=== PATIENT | female | born 1990 | race Caucasian/White ===

== ENCOUNTER 2020-05-24 13:36 | Inpatient (IN) ==
[2020-05-24] MEDS ORDERED: Metoclopramide 10 MG/2 ML VIAL IVP PRN (13:51)
[2020-05-24] MEDS ORDERED: Famotidine 20 MG/2 ML VIAL IVP PRN (13:51)
[2020-05-24] MEDS ORDERED: Naloxone 0.4 MG/ML INJ IVP PRN (13:51)
[2020-05-24] MEDS ORDERED: Ringers Solution, Lactated 1,000 ML IVC SCH (14:00)
[2020-05-24] MEDS ORDERED: miSOPROStoL 25 MCG TABLET PO PRN (15:30)
[2020-05-24 16:30] LABS: Basophils # 0.1 K/mcL (0.0-0.2); Basophils % 0.7 %; Eosinophils # 0.4 K/mcL (0.0-0.6); Hemoglobin 11.1 g/dL (11.5-15.4); Immature Granulocytes % 0.4 % (0-4); Lymphocytes % 19.2 %; Mean Corpuscular HGB Conc 31.7 g/dL (31.6-35.5); Mean Corpuscular Hemoglobin 27.5 pg (28.0-33.3); Mean Corpuscular Volume 86.8 fL (83.0-100.0); Mean Platelet Volume 10.6 fL (9.4-12.4); Monocytes # 1.1 K/mcL (0.0-1.3); Monocytes % 11.2 %; Neutrophils # 6.6 K/mcL (1.6-8.9); Platelet Count 347 K/mcL (140-400); Red Blood Count 4.03 M/mcL (3.82-4.97); Red Cell Distribution Width 12.7 % (11.5-14.5); Segmented Neutrophils % 64.5 %; White Blood Count 10.2 K/mcL (4.3-11.1)
[2020-05-24 16:39] LABS: Amphetamine Screen,Urine Negative ng/mL (Cutoff=1000); Barbiturate Screen,Urine Negative ng/mL (Cutoff=200); Benzodiazepines Screen,Urine Negative ng/mL (Cutoff=200); Cannabinoid Screen,Urine Negative ng/mL (Cutoff = 50); Cocaine Screen,Urine Negative ng/mL (Cutoff= 300); Creatinine,Urine 51 mg/dL; Opiate Screen,Urine Negative ng/mL (Cutoff=300); Phencyclidine Screen,Urine Negative ng/mL (Cutoff=25); Protein/Creatinine Ratio,Urine 0.14 mg/mg (0.00-0.20)
[2020-05-24 16:49] LABS: Alanine Aminotransferase 14 Units/L (7-52); Aspartate Amino Transferase 19 Units/L (13-39); BUN/Creatinine Ratio 8 (6-26); Blood Urea Nitrogen 4 mg/dL (6-20); Lactate Dehydrogenase 178 Units/L (140-271); Uric Acid 3.5 mg/dL (2.3-7.6); eGFR For African Americans > 60 (> 60); eGFR For Non-African Americans > 60 (> 60)
[2020-05-24] MEDS ORDERED: *HR* FentaNYL (PF) 100 MCG/2 ML VIAL IVP ONE (18:21)
[2020-05-24] MEDS ORDERED: Bupivacaine-MPF 0.25% 10 ML VIAL EP ONE (20:02)
[2020-05-24] MEDS ORDERED: *HR* FentaNYL (PF) 100 MCG/2 ML VIAL EP ONE (20:02)
[2020-05-24] MEDS ORDERED: EPHEDrine 50 MG/ML VIAL IVP PRN (20:02)
[2020-05-24] MEDS ORDERED: Ropivacaine/PF 0.2% 20 ML VIAL ONE (20:03)
[2020-05-24] MEDS ORDERED: Bupivacaine-MPF 0.25% 10 ML VIAL ONE (20:04)
[2020-05-24] MEDS ORDERED: *HR* FentaNYL (PF) 100 MCG/2 ML VIAL ONE (20:04)
[2020-05-24] MEDS: Ondansetron 4 MG/2 ML VIAL IVP PRN (22:45)
[2020-05-24] MEDS: Oxytocin 20 units/ LR 1000 mL 20 UNIT/1,000 ML BAG IVC SCH (23:28)
[2020-05-25] MEDS: Epidural Premix (fent/bupiv) 110 ML EP SCH ×4 (04:35→23:04)
[2020-05-25] MEDS: Ondansetron 4 MG/2 ML VIAL IVP PRN (14:36)
[2020-05-25] MEDS: Oxytocin 20 units/ LR 1000 mL 20 UNIT/1,000 ML BAG IVC SCH (15:01)
[2020-05-25] MEDS: D5% in Lactated Ringers 1,000 ML IVC SCH ×2 (15:03→23:07)
[2020-05-25 17:48] LABS: Adenovirus Not Detected (Not Detect); Bordetella Pertussis Not Detected (Not Detect); Chlamydophila pneumoniae Not Detected (Not Detect); Coronavirus 229E Not Detected (Not Detect); Coronavirus HKU1 Not Detected (Not Detect); Coronavirus NL63 Not Detected (Not Detect); Coronavirus OC43 Not Detected (Not Detect); Human Metapneumovirus Not Detected (Not Detect); Human Rhinovirus/Enterovirus Not Detected (Not Detect); Influenza A Subtype 2009 H1 Not Detected (Not Detect); Influenza B Not Detected (Not Detect); Mycoplasma pneumoniae Not Detected (Not Detect); Parainfluenza Virus 1 Not Detected (Not Detect); Parainfluenza Virus 2 Not Detected (Not Detect); Parainfluenza Virus 3 Not Detected (Not Detect); Parainfluenza Virus 4 Not Detected (Not Detect); Respiratory Syncytial Virus Not Detected (Not Detect); SARS-CoV-2 Not Detected (Not Detect)
[2020-05-25] MEDS ORDERED: Ropivacaine/PF 0.2% 20 ML VIAL ONE ×2 (20:30→22:52)
[2020-05-25] MEDS ORDERED: Lidocaine -MPF 2% 5 ML VIAL ONE (23:49)
[2020-05-25] MEDS ORDERED: *HR* Ropivacaine/PF 0.5% 20 ML VIAL ONE (23:50)
[2020-05-25] MEDS ORDERED: ceFAZolin 3,000 MG in Water for inj. (sterile) 30 ML IVP ONE (23:58)
[2020-05-25] MEDS ORDERED: Chloroprocaine/PF 20 ML VIAL INFILT ONE (23:59)
[2020-05-26] MEDS ORDERED: Azithromycin 500 MG in 0.9 % Sodium Chloride 250 ML IVPB ONE (00:05)
[2020-05-26] MEDS ORDERED: *HR* Succinylcholine 200 MG/10 ML VIAL IVP ONE (00:05)
[2020-05-26] MEDS ORDERED: Ondansetron 4 MG/2 ML VIAL ONE (00:09)
[2020-05-26] MEDS ORDERED: *HR* Morphine Sulfate/PF 10 MG/10 ML AMPUL ONE (00:49)
[2020-05-26] MEDS ORDERED: *HR* FentaNYL (PF) 100 MCG/2 ML VIAL ONE ×2 (00:51→01:17)
[2020-05-26] MEDS ORDERED: Acetaminophen IV 1,000 MG/100 ML INFUS..BTL ONE (01:06)
[2020-05-26] MEDS ORDERED: Dexamethasone 4 MG/ML VIAL ONE (01:16)
[2020-05-26] MEDS ORDERED: *HR* OxyCODONE Immed Rel 5 MG TABLET PO PRN (01:41)
[2020-05-26] MEDS: *HR* HYDROmorphone PF 0.5 MG/0.5 ML SYRINGE IVP PRN ×2 (01:55→02:21)
[2020-05-26] MEDS ORDERED: Ondansetron 4 MG/2 ML VIAL IVP PRN (03:56)
[2020-05-26] MEDS ORDERED: Metoclopramide 10 MG/2 ML VIAL IVP PRN (03:56)
[2020-05-26] MEDS ORDERED: Sennosides 8.6 MG TABLET PO PRN (03:56)
[2020-05-26] MEDS ORDERED: RIZATRIPTAN BENZOATE PO PRN (03:56)
[2020-05-26] MEDS: *HR* OxyCODONE/APAP 5/325 TABLET PO PRN ×4 (05:15→20:40)
[2020-05-26] MEDS: Oxytocin 20 units/ LR 1000 mL 20 UNIT/1,000 ML BAG IVC SCH ×3 (05:50→20:38)
[2020-05-26 06:19] LABS: Basophils % 0.2 %; Hematocrit 29.1 % (35.3-44.9); Immature Granulocytes % 0.7 % (0-4); Lymphocytes # 0.8 K/mcL (0.6-4.6); Lymphocytes % 4.2 %; Mean Corpuscular HGB Conc 32.6 g/dL (31.6-35.5); Mean Corpuscular Hemoglobin 28.4 pg (28.0-33.3); Mean Corpuscular Volume 87.1 fL (83.0-100.0); Mean Platelet Volume 10.6 fL (9.4-12.4); Monocytes # 1.5 K/mcL (0.0-1.3); Monocytes % 7.9 %; Platelet Count 280 K/mcL (140-400); Red Blood Count 3.34 M/mcL (3.82-4.97); Red Cell Distribution Width 12.6 % (11.5-14.5)
[2020-05-26 06:21] LABS: Hemoglobin 9.5 g/dL (11.5-15.4); White Blood Count 18.4 K/mcL (4.3-11.1)
[2020-05-26] MEDS: Acetaminophen 325 MG TABLET PO PRN ×3 (08:35→23:50)
[2020-05-26] MEDS: metroNIDAZOLE 500 MG TABLET PO SCH ×3 (08:35→20:40)
[2020-05-26] MEDS: Prenatal Vit/FA 1 EACH TABLET PO SCH (08:35)
[2020-05-26] MEDS: Clindamycin 900 MG/50 ML 900 MG/50 ML IV.SOLN IVPB SCH ×3 (08:36→23:51)
[2020-05-26] MEDS ORDERED: NON-FORMULARY MEDICATION 1 EACH EACH (Prenatal 19 Tablet 1 TAB) PO SCH (09:00)
[2020-05-26] MEDS: Ibuprofen 600 MG TABLET PO PRN ×2 (11:09→18:31)
[2020-05-26] MEDS: Simethicone 80 MG TAB.CHEW PO PRN ×2 (15:53→23:50)
[2020-05-26] MEDS: *HR* OxyCODONE Immed Rel 5 MG TABLET PO PRN ×2 (16:29→22:40)
[2020-05-27] MEDS: Ibuprofen 600 MG TABLET PO PRN (00:13)
[2020-05-27] MEDS: *HR* OxyCODONE/APAP 5/325 TABLET PO PRN ×3 (01:18→17:46)
[2020-05-27] MEDS ORDERED: Morphine Sulfate 2 MG/ML SYRINGE IVP ONE (01:55)
[2020-05-27] MEDS ORDERED: Ibuprofen 600 MG TABLET PO SCH (06:00)
[2020-05-27] MEDS: Prenatal Vit/FA 1 EACH TABLET PO SCH (08:38)
[2020-05-27] MEDS: metroNIDAZOLE 500 MG TABLET PO SCH ×3 (08:38→20:59)
[2020-05-27] MEDS ORDERED: *HR* Enoxaparin 80 MG/0.8 ML SYRINGE SQ SCH (09:00)
[2020-05-27] MEDS: *HR* OxyCODONE Immed Rel 5 MG TABLET PO PRN (09:00)
[2020-05-27] MEDS ORDERED: Ketorolac 30 MG/ML VIAL IVP SCH (12:00)
[2020-05-27] MEDS: Ketorolac 30 MG/ML VIAL IVP SCH (20:59)
[2020-05-27] MEDS: *HR* Enoxaparin 80 MG/0.8 ML SYRINGE SQ SCH (21:00)
[2020-05-28] MEDS: *HR* OxyCODONE/APAP 5/325 TABLET PO PRN ×3 (00:17→12:32)
[2020-05-28] MEDS ORDERED: Lanolin 7 G OINT...G. TP PRN (01:40)
[2020-05-28] MEDS: Ketorolac 30 MG/ML VIAL IVP SCH ×2 (03:36→09:38)
[2020-05-28] MEDS: *HR* Enoxaparin 80 MG/0.8 ML SYRINGE SQ SCH (09:34)
[2020-05-28] MEDS: Prenatal Vit/FA 1 EACH TABLET PO SCH (09:38)
[2020-05-28 12:00] VITALS: BP 137/85
== END 2020-05-28 13:52 | disposition home or self-care (01) | DRG 787 ==
LOC: 1NENULAB 13:36 → 1NENUOBS 05-26 05:38
PROVIDERS: ADMIT Obstetrics & Gynecology; ATTEND Obstetrics & Gynecology